=== PATIENT | female | born 1935 | race Caucasian/White ===

== ENCOUNTER → 2023-08-09 07:27 | Outpatient (REF) | payer MEDICARE, OTHER, SELFPAY | LOC: HWRAD 07:27 | PROVIDERS: ATTENDING PHYSICIAN Family Medicine | DX: K59.09 Other constipation (principal) | CPT/HCPCS: 74176 ==

== ENCOUNTER → 2023-09-01 09:08 | Outpatient (REF) | payer MEDICARE, OTHER, SELFPAY ==
[2023-09-01 12:19] LABS: % Basophils 0.7 % (0-2); % Eosinophils 2.4 % (0-6); % Immature Granulocytes 0.2 % (0-0.5); % Lymphocytes 31.8 % (20.5-51.1); % Monocytes 10.4 % (1.7-9.3); % Neutrophils 54.5 % (42.2-75.2); Absolute Eosinophils 0.1 10^3/uL (0-0.7); Absolute Lymphocytes 1.9 10^3/uL (1.2-3.4); Absolute Monocytes 0.6 10^3/uL (0.1-0.6); Absolute Neutrophils 3.2 10^3/uL (1.4-6.5); Hematocrit 35.6 % (37.0-47.0); Hemoglobin 12.7 g/dL (12.0-16.0); Mean Corp Hgb Conc. 35.7 g/dL (33.0-37.0); Mean Corpuscular Hgb 33.9 pg (27.0-31.0); Mean Corpuscular Volume 94.9 fL (81.0-99.0); Mean Platelet Volume 9.5 fL (7.4-10.4); Nucleated Red Blood Cells % 0 %; Platelet Count 293 10^3/uL (130-400); Red Blood Cell Count 3.75 10^6/uL (4.20-5.40); Red Cell Dist. Width 12.8 % (11.5-14.5); White Blood Cell Count 5.9 10^3/uL (4.8-10.8)
[2023-09-01 12:44] LABS: ALT (SGPT) 13 U/L (0-35); AST (SGOT) 34 U/L (14-36); Albumin 3.4 g/dl (3.5-5.0); Alkaline Phosphatase 52 U/L (38-126); Direct Bilirubin 0.4 mg/dl (0.0-0.4); Total Bilirubin 0.8 mg/dl (0.2-1.3); Total Protein 6.2 g/dl (6.3-8.2)
== END ==
LOC: HWLAB 09:08
PROVIDERS: ATTENDING PHYSICIAN Internal Medicine Hematology & Oncology; FAMILY PHYSICIAN Family Medicine
DX: C50.511 Malignant neoplasm of lower-outer quadrant of right female breast (principal); D70.9 Neutropenia, unspecified; R11.2 Nausea with vomiting, unspecified; R19.7 Diarrhea, unspecified
CPT/HCPCS: 36415; 80076; 85025

== ENCOUNTER → 2023-10-11 06:46 | Outpatient (REF) | payer MEDICARE, OTHER, SELFPAY ==
[2023-10-11 09:51] LABS: % Basophils 0.7 % (0-2); % Eosinophils 2.6 % (0-6); % Immature Granulocytes 0.2 % (0-0.5); % Lymphocytes 31.6 % (20.5-51.1); % Monocytes 10.4 % (1.7-9.3); % Neutrophils 54.5 % (42.2-75.2); Absolute Eosinophils 0.2 10^3/uL (0-0.7); Absolute Lymphocytes 1.9 10^3/uL (1.2-3.4); Absolute Monocytes 0.6 10^3/uL (0.1-0.6); Absolute Neutrophils 3.2 10^3/uL (1.4-6.5); Hematocrit 37.1 % (37.0-47.0); Hemoglobin 12.7 g/dL (12.0-16.0); Mean Corp Hgb Conc. 34.2 g/dL (33.0-37.0); Mean Corpuscular Hgb 33.2 pg (27.0-31.0); Mean Corpuscular Volume 96.9 fL (81.0-99.0); Mean Platelet Volume 9.3 fL (7.4-10.4); Nucleated Red Blood Cells % 0 %; Platelet Count 287 10^3/uL (130-400); Red Blood Cell Count 3.83 10^6/uL (4.20-5.40); Red Cell Dist. Width 12.7 % (11.5-14.5); White Blood Cell Count 5.9 10^3/uL (4.8-10.8)
[2023-10-11 10:16] LABS: ALT (SGPT) 14 U/L (0-35); AST (SGOT) 33 U/L (14-36); Albumin 3.8 g/dl (3.5-5.0); Alkaline Phosphatase 56 U/L (38-126); Blood Urea Nitrogen 15 mg/dl (7-17); Calcium 9.2 mg/dl (8.4-10.2); Carbon Dioxide 30 mmol/L (22-30); Chloride 104 mmol/L (98-107); Glucose 99 mg/dl (70-99); HDL Cholesterol 52 mg/dl; LDL Cholesterol, Calculated 32 mg/dl; Potassium 3.7 mmol/L (3.5-5.1); Sodium 138 mmol/L (135-145); Total Bilirubin 0.7 mg/dl (0.2-1.3); Total Cholesterol 112 mg/dl (50-199); Total Protein 6.3 g/dl (6.3-8.2); Triglyceride 142 mg/dl (10-149); Very Low Density Lipoprotein 28 mg/dl (0-30); eGFR 54.87
[2023-10-11 10:45] LABS: TSH Reflex To Free T4 5.65 uIU/ml (0.47-4.68)
[2023-10-11 11:30] LABS: Free T4 1.47 ng/dl (0.78-2.19)
[2023-10-11 11:58] LABS: Glycohemoglobin (HgbA1c) 5.7 % (4.0-5.6)
== END ==
LOC: HWLAB 06:46
PROVIDERS: ATTENDING PHYSICIAN Family Medicine
DX: E89.0 Postprocedural hypothyroidism (principal); E11.51 Type 2 diabetes mellitus with diabetic peripheral angiopathy without gangrene; N18.30 Chronic kidney disease, stage 3 unspecified; E78.00 Pure hypercholesterolemia, unspecified
CPT/HCPCS: 36415; 80053; 80061; 83036; 84439; 84443; 85025

== ENCOUNTER 2023-10-11 13:44 | Emergency (ER) | payer MEDICARE, OTHER, SELFPAY ==
[2023-10-11 13:44] VITALS: BMI 29.9
[2023-10-11 13:50] VITALS: BP 170/79
--- NOTE | 2023-10-11 14:00 | ED.CVA ---
History of Present Illness
General
Chief Complaint: CVA/TIA Symptoms
Source: patient and family
Exam Limitations: none
Time Seen by Provider: 10/11/23 13:55
Nursing documentation reviewed up to this point in time: agreed with
Onset of Stroke Symptoms
Onset of symptoms known: Yes
Date of onset of symptoms: 10/11/23
Time of onset of symptoms: 13:00
Travel History
Have you had any contact with someone who has COVID-19?: No
Do you have any symptoms of coronavirus? Fever > 100 degrees, chills, cough, shortness of breath, sore throat, loss of taste or smell, muscle aches, or headache?: No
History of Present Illness
History of Present Illness:
Patient presents to ED secondary to sudden onset of difficulty speaking, on approximately 1/2-hour prior to arrival. Patient has had posterior headache intermittently over the past 1 week. Denies dizziness. Denies blurred vision. Denies loss of
sensation or weakness. Denies difficulty swallowing. Denies nausea or vomiting. Denies recent illness. Denies recent change in medications or diet. Denies previous history of similar symptoms. Patient takes 81 mg aspirin daily.
Past History
Past History
ED Past Medical History: Cancer, Fibromyalgia, GERD, HTN, Hypercholesterolemia, Hypothyroidism, Psychiatric, Other and Other
ED Past Surgical History: Appendectomy, Cholecystectomy, Gynecological, Orthopedic and Other
Social History
Tobacco: Former smoker
Alcohol: None
Drug: None
Personal:
Living: with family
Employment: Retired
Family History
Family History: Cancer
Review of Systems
Review of Systems
Allergies reviewed?: Yes
All Other Systems: ROS reviewed and negative except as documented in HPI and ROS
Constitutional: Reports no symptoms
EENT: Reports no symptoms
Respiratory: Reports no symptoms
Cardiac: Reports no symptoms
ABD/GI: Reports no symptoms
: Reports no symptoms
Musculoskeletal: Reports no symptoms
Skin: Reports no symptoms
Neurological: Reports other (Difficulty w speech)
Phy Exam
Physical Exam
Physical Exam:
Physical Exam
General: no apparent distress, not acutely ill. afebrile.
Head: nc/at. eomi
Neck: supple. normal range of motion.
Heart: s1/s2 regular rate and rhythm, no murmur. equal radial pulses.
Lungs: no acute respiratory distress. clear bilaterally
Abdomen: normal bowel sounds. not tender.
Neuro: alert and oriented. no focal sensory/motor deficit. stuttering/delayed speech noted.
Skin: no rash
Psychiatric: well kept. interactive and cooperative
Extremities: no edema. no calf tenderness.
Course
Orders/Labs/Results
Orders:
Orders
10/11/23 13:58
CT Head W/o Cont STROKE ALERT Stat
Comment:
Reason For Exam: aphasia
10/11/23 14:05
Electrocardiogram (*1) Stat
Reason for Study: Other
Other Reason for Exam: neuro symptoms
Cardiac Monitoring- Treatment ONCE
EKG- Treatment ONCE
10/11/23 14:09
Lorazepam [Ativan] 0.5 mg IV NOW STA
Lorazepam [Ativan] 1 mg IV NOW STA
10/11/23 14:10
Basic Metabolic Panel Urgent
Complete Blood Count/No Diff Urgent
Ferritin Urgent
Comment: ADD ON
Folate Urgent
Comment: ADD ON
Vitamin B12 Urgent
Comment: ADD ON
Lorazepam [Ativan] 2 mg .ROUTE .STK-MED ONE
10/11/23 14:11
0.9% Sodium Chloride [Nss (Preservative Free)] 0.5 ml IV STAT STA
10/11/23 15:14
Acetaminophen [Tylenol] 650 mg PO NOW STA
10/11/23 15:29
Add On- LAB Routine
Tests Added?: folate, ferritin, B12
Abnormal Lab Results
10/11/23
14:10
RBC 3.59 L 10^6/uL
(4.20-5.40)
Hct 34.5 L %
(37.0-47.0)
MCH 34.0 H pg
(27.0-31.0)
Sodium 134 L mmol/L
(135-145)
Folate > 20.0 H ng/ml
(2.76-20)
10/11/23 14:10
10/11/23 14:10
Vital Signs
Initial and Last Documented VS:
Initial Vital Signs
Temp Pulse Resp BP Pulse Ox
98.1 F 70 18 170/79 97
10/11/23 13:50 10/11/23 13:50 10/11/23 13:50 10/11/23 13:50 10/11/23 13:50
Last Documented Vital Signs
Temp Pulse Resp BP Pulse Ox
98.1 F 61 12 145/68 95
10/11/23 13:50 10/11/23 15:30 10/11/23 15:30 10/11/23 15:15 10/11/23 15:15
MDM/Problems Addressed
MDM/Problems Addressed:
Stroke alert activated upon arrival. CT head: No acute findings.
Patient evaluated by Dr. Fenton, neurology, who feels that patient's presentation is likely secondary to anxiety, less likely CVA etiology. Does not feel that patient needs any further workup as an inpatient. As such, patient will be discharged
home, to the care of her family, with recommendation to follow-up with neurology as an outpatient, especially with ongoing intermittent upper extremity tremor. Advised to return to ED with worsening symptoms. Patient and family expressed
understanding at time of discharge.
*Critical Care Note
Total Time (30-74mins, 75-104mins- exclusive of procedures): Not Applicable
ED Attending Note
-
Portions of this chart may have been created with voice recognition software.� Occasional wrong word or��sound alike� substitutions may have occurred due to the inherent limitations of voice recognition software.
Discharge Plan
Departure
Patient Disposition: Home (Routine Discharge)
Date of Disposition: 10/11/23
Time of Disposition: 15:41
Patient with high blood pressure during this ER visit?: Yes
Discharge Problem:
Disturbance in speech
Instructions: Dysarthria
Prescriptions:
No Action
famotidine 40 MG tablet
40 mg PO HS
aspirin 81 MG tablet,delayed release (DR/EC)
81 mg PO DAILY
lorazepam 0.5 MG tablet
0.5 mg PO DAILYPRN PRN (Reason: anxiety)
escitalopram oxalate 10 MG tablet
5 mg PO DAILY
pantoprazole 40 MG tablet,delayed release (DR/EC)
40 mg PO DAILY
hydrochlorothiazide 12.5 MG capsule
12.5 mg PO DAILY
metoprolol succinate 25 MG tablet extended release 24 hr
25 mg PO BID
gabapentin 300 MG capsule
900 mg PO HS
gabapentin 300 MG capsule
300 mg PO DAILY
ezetimibe 10 MG tablet
10 mg PO HS
cholecalciferol (vitamin D3) [Vitamin D3] 2,000 UNIT capsule
2,000 unit PO DAILY
Botox 100 unit Recon Soln
0 unit IM MONTHLY
Theragen Tablet
1 tab PO DAILY
Ocuvite Tablet
1 tab PO DAILY
Praluent Pen 75 mg/mL Pen Injector
75 mg SC Q2W
Referrals:
Yvon Fenton MD [Active] -
Activity Restrictions/Additional Instructions:
As discussed, please follow-up with your primary care physician and/or referred neurologist for further evaluation and treatment. Please return to ED with worsening symptoms.
Interventions
Interventions:
*Risk Screen - Suicide Last Done: 10/11/23 16:06
*General Assessment Last Done: 10/11/23 16:06
*Neglect/Abuse Screening Last Done: 10/11/23 16:06
ED- Fall Risk Assessment Last Done: 10/11/23 14:35
*ED COVID-19 Vaccine History Last Done: 10/11/23 16:06
*Nursing Disposition Last Done: 10/11/23 16:06
ED- Pulmonary Assessment Last Done: 10/11/23 14:35
ED- Neurological Assessment Last Done: 10/11/23 14:35
ED- Cardiac Assessment Last Done: 10/11/23 14:35
ED Swallowing Screen Last Done: 10/11/23 15:20
Discharge Date and Time
Discharge Date/Time: 10/11/23 16:07
Print Language: YI
--- NOTE | 2023-10-11 14:06 | CON.NEURO4 ---
Addendum entered and electronically signed by Yvon Fenton MD 10/11/23 16:17:
Studies reviewed.
I have personally examined the patient. I reviewed and agree with the PARISH VISITOR's Note.
My addenda:
Awake, alert, interactive. No acute distress.
Speech intact.
Follows 2-step requests w/o difficulty. Bilateral hand tremor.
Extra-ocular movements grossly intact.
Facial movements full and symmetric. Hearing intact to normal conversational volume.
Normal UE movements bilaterally.
Neck: full ROM.
Chest: no dyspnea
Heart: no JVD
Ext: (-) Clubbing, (-) Cyanosis, (-) Edema
IMPRESSIONS/RECOMMENDATIONS:
Abrupt onset of aphasia with generalized tremor. Patient said similar episodes previously although this episode is longer in duration than usual
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
Provide lorazepam to reduce generalized anxiety
By means of cognitive behavioral therapy to reduce episodes
Continue patient's usual aspirin 81 mg daily
Continue alirocumab
Will continue to follow as outpatient.
Original Note:
Documented by User: Essence Reeves NP 10/11/23 15:28
Consultation - Neurology 4
-
CONSULTING PHYSICIAN: Yvon Fenton MD
REFERRING PHYSICIAN: ER/Dr. Hardy
DICTATED BY: TUTU Henry
DATE/TIME OF REQUEST: 10/11/23
DATE/TIME OF CONSULTATION: 10/11/23
Reason for Consultation: Stroke Alert
History of Present Illness:
This is an 88-year-old female who has presented to the hospital with report of difficulty speaking, confusion, and headache. Patient was formerly followed by our Neurology service Dr. Mao as an outpatient for tremors, cervical dystonia, drooling,
dyskinesia, peripheral polyneuropathy, LLE numbness, and chronic right caudate nucleus, left frontal lobe, and left cerebellar lacunar infarcts.
From previous evaluation by Dr. Mao on 01/08/22:
'Ms. Escobar returns to the office today for a follow-up visit for pain in the back of her neck and lower back. She reports continued and daily pain in her lower back and the back of the neck. However, some days the pain is mild and does not bother
her too much, and other days, it is more intense. She has approximately 2 days a week of more intense pain. She reports compliance with meloxicam, Gabapentin and lidocaine patch. She uses lidocaine patch only on her lower back at this time.
Sometimes, she also takes an additional Tylenol when her pain is more intense. She reports having had a fall in August 2018. She denies any new neurologic complaints today.�������
Patient daughter also noticed patient started to have repetitive oral Facial movement Several years ago. Patient is not able to suppress the movement. She does not feel urge or released before or after the movement. Patient denies history of
exposure to neuroleptics.�������
Patient also had a carotid ultrasound June 2020 and it showed no significant stenosis of internal carotid artery bilaterally.�������
She is taking gabapentin 300mg AM/900 mg PM for neuropathic pain.�������
INTERVAL HX:�������Since last visit, she reported Botox injection is very helpful and improved neck spasm and neck tremor. Kick in about one week and wearing off about two weeks ago. No SE. Drooling significantly improved after botox A injection
however wearing off started about 2-3 weeks ago. No SE from Botox injection.'
In 2017, she presented to with report of right facial drooping and tongue numbness. 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 MRI brain in 2017
demonstrated a small left frontal lobe ischemic infarct. Additionally, in 2018 due to frequent headache she underwent temporal artery biopsy which was negative.
Today (10/11/23), patient's daughter reports that the patient was at her baseline. She went to lunch with another family member and up retuning around 1330, her speech suddenly became stuttered, dysarthric. A stroke alert was activated due to
concern of aphasia. CT head was obtained on arrival in the ER and is negative for any acute abnormalities. NIHSS is a 2 for LLE drift and mild dysarthria. She is not a candidate for TNK/IAT due to NIHSS <6, unclear diagnosis. Patient currently
reports a headache which she has had intermittently for the past week. She has chronic vertigo. She denies any vision changes, swallowing difficulty, new numbness, weakness, chest pain, palpitations, photo/phonophobia, and shortness of breath. She
reports chronic LLE numbness/discomfort with palpation. He daughter reports that she has had similar speech changes in the past associated with severe anxiety. She is taking aspirin 81mg daily and denies missing any doses.
Past Medical History: R caudate nucleus, left frontal lobe, and left cerebellar lacunar infarcts, HTN, HLD, neuropathy, CKD, depression, anxiety, Dixon's esophagus, GERD, breast cancer, hypothyroidism, carotid stenosis, thoracic HNP
Surgical History: L CEA, breast biopsy, b/l breast lumpectomy, b/l cataract removal, hysterectomy, appendectomy, trigger finger release, soft tissue roof of mouth removal, B/L TKR, BL L3-Si IAFJI
Family History: Sister- cerebral aneurysm
Social History: Former smoker.
Allergies: See below. Statin intolerant.
Home Medications: See below.
Review of Symptoms:
Patient denies any fever, chest pain, shortness of breath, GI or symptoms.
�Per the HPI.�All systems are reviewed negative except above.
Physical Exam:
The patient is afebrile, abdomen is nondistended, breathing is unlabored, skin is warm and dry, no edema.
NIH Stroke Scale:
I performed the NIH stroke scale on the patient on 10/11/23 at 1415. The patient scored 2 points on the NIH stroke scale assessment, which were assigned as follows: See below.
Neurologic Examination:
The patient is awake, alert and oriented x 3. She is able to follow commands and answer questions appropriately. There is no aphasia or dysarthria. On cranial nerve assessment, pupils are 3 mm bilateral, round and reactive to light and
accommodation. Visual dimas are full. Extraocular movements are intact. Facial sensations are intact and bilaterally symmetrical, there is no facial asymmetry. Hearing is intact bilaterally to normal conversation volume. Tongue palate and uvula are
midline. Sternocleidomastoid strengths are full bilaterally. Motor strengths are 5/5 bilateral upper and lower extremities on medical research [place] scale. There is drift in the LLE. Intermittent generalized tremor noted. There was no extinction
noted on double simultaneous stimulation. Coordination is intact by finger to nose bilaterally.
Lab Results: See below.
Neuro Imaging:
1. CT Head 10/11/23: Moderate atrophy and small vessel ischemic change, grossly stable compared to prior MRI brain dated 11/05/2021.
Differentials for the patient's presentation include:
1. Likely a metabolic disturbance or functional neurological disorder producing speech changes.
2. Cannot entirely exclude small stroke producing speech changes but less likely.
Patient has the following risk factors for their symptoms: Hx stroke, HTN, HLD, anxiety, age
IV Tenecteplase/IAT candidacy: NIHSS is a 2 for LLE drift and mild dysarthria.
Recommendations:
-Provide lorazepam 0.5mg IV x1 now.
-Checking blood work for metabolic abnormalities.
-If no improvement in speech consider MRI brain as an outpatient.
-Continue aspirin 81mg daily.
Discussed patient care with: Dr. Fenton, the patient, patient's daughter
Vital Signs and Labs
-
Vital Signs and Labs:
Vital Signs
Temp Pulse Resp BP Pulse Ox
98.1 F 70 18 170/79 97
10/11/23 13:50 10/11/23 13:50 10/11/23 13:50 10/11/23 13:50 10/11/23 13:50
Medications
-
Home Medications
�Medication �Instructions �Recorded
aspirin 81 mg tablet,delayed 81 mg PO DAILY 05/10/14
release
escitalopram oxalate 10 mg tablet 5 mg PO DAILY 05/10/14
famotidine 40 mg tablet 40 mg PO HS 05/10/14
lorazepam 0.5 mg tablet 0.5 - 1 mg PO DAILYPRN PRN anxiety 05/10/14
epinephrine 0.3 mg/0.3 mL 0.3 mg IM PRN PRN bee stings 02/17/17
injection, auto-injector (EpiPen)
loratadine 10 mg tablet 10 mg PO DAILY 02/17/17
pantoprazole 40 mg tablet,delayed 40 mg PO DAILY 02/17/17
release
hydrochlorothiazide 12.5 mg capsule 12.5 mg PO DAILY 02/28/18
metoprolol succinate 25 mg 25 mg PO HS 02/28/18
tablet,extended release 24 hr
cholecalciferol (vitamin D3) 50 2,000 unit PO DAILY 01/15/19
mcg (2,000 unit) capsule (Vitamin
D3)
ezetimibe 10 mg tablet 10 mg PO HS 01/15/19
gabapentin 300 mg capsule 300 mg PO .QAM 01/15/19
gabapentin 300 mg capsule 900 mg PO HS 01/15/19
levothyroxine 125 mcg tablet 125 mcg PO DAILY 01/15/19
NIH Stroke Score
Subsequent NIH Scale
Date of Subsequent NIH Scale: 10/11/23
Time of Subsequent NIH Scale: 14:15
NIH Stroke Score
Level of Consciousness: 0 - Alert
LOC Questions: 0-Answers both correctly
LOC Commands: 0-Performs both correctly
Best Horizontal Gaze: 0-Normal
Visual Dimas: 0=Normal, no visual loss
Facial Palsy: 0=Normal, symmetrical
Motor - Right Arm: 0=No drift 10 seconds
Motor - Left Arm: 0=No drift 10 seconds
Motor - Right Le-No drift 5 seconds
Motor - Left Le-Drift < 5 seconds
Limb Ataxia: 0-Absent
Sensation: 0-Normal
Best Language: 0-No aphasia
Dysarthria: 1-Mild slurring
Extinction and Inattention: 0-No abnormality
Total Score:: 2
Allergies
-
Allergies
Allergy/AdvReac Type Severity Reaction Status Date / Time
cephalexin Allergy Rash Verified 01/04/21 20:06
chloroquine Allergy Unknown Verified 01/04/21 20:06
ondansetron Allergy Patient Verified 01/04/21 20:06
[From Zofran (as has
hydrochloride)] prolonged
QT syndrome
quinine Allergy Neck and Verified 01/04/21 20:06
throat
swelling
simvastatin Allergy muscle Verified 01/04/21 20:06
pain,
weakness
Xgkrsbs-VCS-QaZ Reductase Allergy muscle Verified 01/04/21 20:06
Inhibitor pain,
[Utdwbda-Tos-Hkd Reductase weakness
Inhibitor]
Sulfa (Sulfonamide Allergy Neck and Verified 01/04/21 20:06
Antibiotics) throat
swelling,
rash
sulfisoxazole Allergy Unknown Verified 01/04/21 20:06
Bee stings Allergy Loss of Uncoded 01/04/21 20:06
muscle
control

Documented by User: Yvon Fenton MD 10/11/23 16:13
NIH Stroke Score
NIH Stroke Score
Total Score:: 2
[2023-10-11 14:12] LABS: Glucose - Point of Care 93 mg/dl (70-99)
[2023-10-11] MEDS: ATIVAN 0.5 MG IV (14:22)
[2023-10-11 14:29] LABS: Hematocrit 34.5 % (37.0-47.0); Hemoglobin 12.2 g/dL (12.0-16.0); Mean Corp Hgb Conc. 35.4 g/dL (33.0-37.0); Mean Corpuscular Volume 96.1 fL (81.0-99.0); Mean Platelet Volume 9.1 fL (7.4-10.4); Platelet Count 267 10^3/uL (130-400); Red Blood Cell Count 3.59 10^6/uL (4.20-5.40); Red Cell Dist. Width 12.5 % (11.5-14.5); White Blood Cell Count 7.8 10^3/uL (4.8-10.8)
[2023-10-11 14:43] LABS: Blood Urea Nitrogen 15 mg/dl (7-17); Calcium 9.6 mg/dl (8.4-10.2); Carbon Dioxide 27 mmol/L (22-30); Chloride 98 mmol/L (98-107); Estimated Creatinine Clearance 46 ml/min; Glucose 95 mg/dl (70-99); Potassium 3.8 mmol/L (3.5-5.1); Sodium 134 mmol/L (135-145); eGFR > 60.00
[2023-10-11 14:45] VITALS: BP 154/60
[2023-10-11 15:00] VITALS: BP 158/59
[2023-10-11 15:15] VITALS: BP 145/68
[2023-10-11] MEDS: TYLENOL 650 MG PO (15:26)
[2023-10-11 17:54] LABS: Ferritin 58.3 ng/ml (11.1-264.0)
[2023-10-11 18:25] LABS: Folate > 20.0 ng/ml (2.76-20); Vitamin B12 583 pg/ml (239-931)
== END 2023-10-11 16:07 | disposition home or self-care (01) ==
LOC: EMR 13:44
PROVIDERS: EMERGENCY PHYSICIAN Emergency Medicine; FAMILY PHYSICIAN Family Medicine; OTHER PHYSICIAN Psychiatry & Neurology Neurology
DX: R47.9 Unspecified speech disturbances (principal); R51.9 Headache, unspecified; R25.1 Tremor, unspecified; R47.01 Aphasia; I10 Essential (primary) hypertension; Z87.891 Personal history of nicotine dependence; Z79.82 Long term (current) use of aspirin
CPT/HCPCS: 99285; 96374; 70450; 80048; 82607; 82728; 82746; 82962; 85027; 93005

== ENCOUNTER → 2023-10-18 12:05 | Outpatient (REF) | payer MEDICARE, OTHER, SELFPAY | LOC: HWRAD 12:05 | PROVIDERS: ATTENDING PHYSICIAN Family Medicine | DX: M79.671 Pain in right foot (principal) | CPT/HCPCS: 73630 ==

== ENCOUNTER → 2023-12-12 07:33 | Outpatient (REF) | payer MEDICARE, OTHER, SELFPAY | LOC: MRI 07:33 | PROVIDERS: ATTENDING PHYSICIAN Nurse Practitioner Adult Health; FAMILY PHYSICIAN Family Medicine | DX: R47.89 Other speech disturbances (principal); Z86.73 Personal history of transient ischemic attack (TIA), and cerebral infarction without residual deficits | CPT/HCPCS: 70551 ==

== ENCOUNTER 2023-12-27 18:46 | Emergency (ER) | payer MEDICARE, OTHER, SELFPAY ==
[2023-12-27 18:48] VITALS: BP 166/76
[2023-12-27 19:14] LABS: % Basophils 0.7 % (0-2); % Eosinophils 1.9 % (0-6); % Immature Granulocytes 0.1 % (0-0.5); % Lymphocytes 35.2 % (20.5-51.1); % Monocytes 8.8 % (1.7-9.3); % Neutrophils 53.3 % (42.2-75.2); Absolute Basophils 0.1 10^3/uL (0-0.2); Absolute Eosinophils 0.1 10^3/uL (0-0.7); Absolute Lymphocytes 2.6 10^3/uL (1.2-3.4); Absolute Monocytes 0.7 10^3/uL (0.1-0.6); Absolute Neutrophils 3.9 10^3/uL (1.4-6.5); Hematocrit 32.9 % (37.0-47.0); Hemoglobin 11.9 g/dL (12.0-16.0); Mean Corp Hgb Conc. 36.2 g/dL (33.0-37.0); Mean Corpuscular Hgb 34.1 pg (27.0-31.0); Mean Corpuscular Volume 94.3 fL (81.0-99.0); Mean Platelet Volume 9.1 fL (7.4-10.4); Nucleated Red Blood Cells % 0 %; Platelet Count 291 10^3/uL (130-400); Red Blood Cell Count 3.49 10^6/uL (4.20-5.40); Red Cell Dist. Width 12.7 % (11.5-14.5); White Blood Cell Count 7.4 10^3/uL (4.8-10.8)
[2023-12-27 19:33] LABS: ALT (SGPT) 14 U/L (0-35); AST (SGOT) 36 U/L (14-36); Albumin 3.8 g/dl (3.5-5.0); Alkaline Phosphatase 59 U/L (38-126); Blood Urea Nitrogen 15 mg/dl (7-17); Calcium 9.4 mg/dl (8.4-10.2); Carbon Dioxide 28 mmol/L (22-30); Chloride 104 mmol/L (98-107); Glucose 90 mg/dl (70-99); Sodium 138 mmol/L (135-145); Total Bilirubin 0.4 mg/dl (0.2-1.3); eGFR > 60.00
[2023-12-27 19:40] LABS: Troponin I < 0.012 ng/ml
[2023-12-27 21:08] VITALS: BP 155/59
--- NOTE | 2023-12-27 21:41 | ED.GENMED ---
History of Present Illness
General
Chief Complaint: Cardiac Symptoms
Source: patient and family
Exam Limitations: none
Time Seen by Provider: 12/27/23 20:56
Nursing documentation reviewed up to this point in time: agreed with
History of Present Illness
History of Present Illness:
88-year-old female type II diabetic, hypercholesterolemia, anxiety, presents with sharp anterior chest wall pain since waking up from a nap lasting secondary to sharp, no prior episodes does admit to some nervousness she has a dermatology
appointment to have the lesion evaluated on her nose, history of breast cancer, 6 years ago, had no fever or chills, no diaphoresis no heavy lifting
Past History
Past History
ED Past Medical History: Cancer, Fibromyalgia, GERD, HTN, Hypercholesterolemia, Hypothyroidism, Psychiatric, Other and Other
ED Past Surgical History: Appendectomy, Cholecystectomy, Gynecological, Orthopedic and Other
Social History
Tobacco: Former smoker
Alcohol: None
Drug: None
Personal:
Living: with family
Employment: Retired
Family History
Family History: Cancer
Review of Systems
Review of Systems
All Other Systems: Not applicable
Constitutional: Denies fever or fatigue
Respiratory: Denies trouble breathing
Cardiac: Reports chest pain; Denies palpitations
ABD/GI: Reports no symptoms
: Reports no symptoms
Musculoskeletal: Reports no symptoms
Neurological: Reports no symptoms
Endocrine: Reports no symptoms
Phy Exam
Physical Exam
Physical Exam:
Physical Exam
General: no apparent distress, not acutely ill
Neck: Small lesion on the left anterior nose
Heart: Regular sharp point tender over the right sternal
Lungs: no acute respiratory distress. clear bilaterally
Abdomen: Nontender
Neuro: alert and oriented. no focal neurological deficits
Skin: no rash
Psychiatric: well kept. interactive and cooperative
Extremities: no edema. no calf tenderness.
Course
Orders/Labs/Results
Orders:
Orders
12/27/23 18:51
Electrocardiogram (*1) Urgent
Reason for Study: Chest Pain
EKG- Treatment ONCE
12/27/23 19:05
CMP [Comprehensive Metabolic Panel] Urgent
Complete Blood Count/With Diff Urgent
Troponin I Urgent
12/27/23 21:38
Acetaminophen [Tylenol] 650 mg PO NOW STA
Ibuprofen [Motrin] 400 mg PO NOW STA
CR Chest - 2 Views Urgent
Comment:
Reason For Exam: cp
Abnormal Lab Results
12/27/23
19:05
RBC 3.49 L 10^6/uL
(4.20-5.40)
Hgb 11.9 L g/dL
(12.0-16.0)
Hct 32.9 L %
(37.0-47.0)
MCH 34.1 H pg
(27.0-31.0)
Absolute Monos (auto) 0.7 H 10^3/uL
(0.1-0.6)
Total Protein 6.0 L g/dl
(6.3-8.2)
12/27/23 19:05
12/27/23 19:05
Vital Signs
Initial and Last Documented VS:
Initial Vital Signs
Temp Pulse Resp BP Pulse Ox
98 F 66 22 166/76 76
12/27/23 18:48 12/27/23 18:48 12/27/23 18:48 12/27/23 18:48 12/27/23 18:48
Last Documented Vital Signs
Temp Pulse Resp BP Pulse Ox
98 F 66 22 166/76 76
12/27/23 18:48 12/27/23 18:48 12/27/23 18:48 12/27/23 18:48 12/27/23 18:48
MDM/Problems Addressed
Differential Diagnosis Includes:
Costochondritis, muscle strain, doubt pneumothorax PE or ACS by history physical
MDM/Problems Addressed:
Chest wall pain
Chronic conditions affecting care: DM
Acute Exacerbation and/or Progression of Chronic Illness: DM
*Radiology
Radiology exam reviewed: preliminary read by ED provider
*Pulse Oximetry
Patient hypoxic: no
*EKG
Interpreted by ED Provider?: Yes
Interpretation: normal
Comparison EKG: no comparison EKG present
Heart Rate: 78
Rate: normal
Ischemia: no ischemia
*Manager Desktop Interpretation
Rate: normal
Interpretation: normal
Heart Rate: 78
Rhythm: sinus
*Critical Care Note
Total Time (30-74mins, 75-104mins- exclusive of procedures): Not Applicable
Update Note
Update Note:
Update, symptoms were atypical for ACS sharp for a few seconds clearly reproducible EKG and troponin have been ordered by nursing and are noted with chest x-ray, treat symptomatically I did offer her anxiolytic as she does appear to have some
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
takes a lorazepam at home and would not want to potentiate any drug to drug interaction
PM chest x-ray noted
ED Attending Note
-
Portions of this chart may have been created with voice recognition software.� Occasional wrong word or��sound alike� substitutions may have occurred due to the inherent limitations of voice recognition software.
Discharge Plan
Departure
Patient Disposition: Home (Routine Discharge)
Date of Disposition: 12/27/23
Time of Disposition: 23:11
Patient with high blood pressure during this ER visit?: No
Condition: Good
Discharge Problem:
Acute costochondritis
Instructions: Costochondritis
Prescriptions:
No Action
famotidine 40 MG tablet
40 mg PO HS
aspirin 81 MG tablet,delayed release (DR/EC)
81 mg PO DAILY
lorazepam 0.5 MG tablet
0.5 mg PO DAILYPRN PRN (Reason: anxiety)
escitalopram oxalate 10 MG tablet
5 mg PO DAILY
pantoprazole 40 MG tablet,delayed release (DR/EC)
40 mg PO DAILY
hydrochlorothiazide 12.5 MG capsule
12.5 mg PO DAILY
metoprolol succinate 25 MG tablet extended release 24 hr
25 mg PO BID
gabapentin 300 MG capsule
900 mg PO HS
gabapentin 300 MG capsule
300 mg PO DAILY
ezetimibe 10 MG tablet
10 mg PO HS
cholecalciferol (vitamin D3) [Vitamin D3] 2,000 UNIT capsule
2,000 unit PO DAILY
Botox 100 unit Recon Soln
0 unit IM MONTHLY
Theragen Tablet
1 tab PO DAILY
Ocuvite Tablet
1 tab PO DAILY
Praluent Pen 75 mg/mL Pen Injector
75 mg SC Q2W
Referrals:
UNKNOWN - PT DOES,NOT KNOW [Unknown Provider] -
Activity Restrictions/Additional Instructions:
Tylenol or ibuprofen for pain, follow-up with your microelectronics engineer tomorrow as scheduled
Interventions
Interventions:
*Risk Screen - Suicide Last Done: 12/27/23 18:48
*Neglect/Abuse Screening Last Done: 12/27/23 18:48
Discharge Date and Time
Print Language: SLOVEN[place]
[2023-12-27 22:00] VITALS: BP 175/65
[2023-12-27 23:00] VITALS: BP 176/62
[2023-12-27] MEDS: MOTRIN 400 MG PO (23:34)
[2023-12-27] MEDS: TYLENOL 650 MG PO (23:35)
== END 2023-12-27 23:58 | disposition home or self-care (01) ==
LOC: EMR 18:46
PROVIDERS: Student in an Organized Health Care Education/Training Program; EMERGENCY PHYSICIAN Emergency Medicine; FAMILY PHYSICIAN Family Medicine
DX: M94.0 Chondrocostal junction syndrome [Tietze] (principal); Z87.891 Personal history of nicotine dependence; E78.00 Pure hypercholesterolemia, unspecified; E11.9 Type 2 diabetes mellitus without complications; F41.9 Anxiety disorder, unspecified
CPT/HCPCS: 99285; 71046; 80053; 84484; 85025; 93005

== ENCOUNTER → 2024-02-14 09:27 | Outpatient (REF) | payer MEDICARE, OTHER, SELFPAY ==
[2024-02-14 10:34] LABS: % Basophils 0.9 % (0-2); % Eosinophils 2.4 % (0-6); % Immature Granulocytes 0.2 % (0-0.5); % Lymphocytes 19.8 % (20.5-51.1); % Neutrophils 63.7 % (42.2-75.2); Absolute Basophils 0.1 10^3/uL (0-0.2); Absolute Eosinophils 0.1 10^3/uL (0-0.7); Absolute Lymphocytes 1.1 10^3/uL (1.2-3.4); Absolute Monocytes 0.7 10^3/uL (0.1-0.6); Absolute Neutrophils 3.4 10^3/uL (1.4-6.5); Hematocrit 34.1 % (37.0-47.0); Hemoglobin 11.6 g/dL (12.0-16.0); Mean Corpuscular Hgb 33.3 pg (27.0-31.0); Mean Platelet Volume 9.1 fL (7.4-10.4); Nucleated Red Blood Cells % 0 %; Platelet Count 248 10^3/uL (130-400); Red Blood Cell Count 3.48 10^6/uL (4.20-5.40); Red Cell Dist. Width 12.9 % (11.5-14.5); White Blood Cell Count 5.3 10^3/uL (4.8-10.8)
[2024-02-14 10:55] LABS: ALT (SGPT) 14 U/L (0-35); AST (SGOT) 34 U/L (14-36); Albumin 3.5 g/dl (3.5-5.0); Alkaline Phosphatase 54 U/L (38-126); Blood Urea Nitrogen 16 mg/dl (7-17); Calcium 9.2 mg/dl (8.4-10.2); Carbon Dioxide 28 mmol/L (22-30); Chloride 107 mmol/L (98-107); Glucose 93 mg/dl (70-99); HDL Cholesterol 48 mg/dl; LDL Cholesterol, Calculated 32 mg/dl; Potassium 4.6 mmol/L (3.5-5.1); Sodium 139 mmol/L (135-145); Total Cholesterol 94 mg/dl (50-199); Total Protein 5.9 g/dl (6.3-8.2); Triglyceride 71 mg/dl (10-149); Very Low Density Lipoprotein 14 mg/dl (0-30); eGFR > 60.00
[2024-02-14 10:57] LABS: Glycohemoglobin (HgbA1c) 5.6 % (4.0-5.6)
[2024-02-14 11:26] LABS: TSH Reflex To Free T4 0.13 uIU/ml (0.47-4.68)
[2024-02-14 11:54] LABS: Free T4 2.13 ng/dl (0.78-2.19)
[2024-02-14 12:13] LABS: Total Bilirubin 0.5 mg/dl (0.2-1.3)
== END ==
LOC: REG 09:27
PROVIDERS: ATTENDING PHYSICIAN Family Medicine
DX: N18.30 Chronic kidney disease, stage 3 unspecified (principal); R53.83 Other fatigue; E89.0 Postprocedural hypothyroidism; E11.51 Type 2 diabetes mellitus with diabetic peripheral angiopathy without gangrene; E78.00 Pure hypercholesterolemia, unspecified
CPT/HCPCS: 36415; 80053; 80061; 83036; 84439; 84443; 85025

== ENCOUNTER → 2024-03-09 07:40 | Outpatient (REF) | payer MEDICARE, OTHER, SELFPAY | LOC: WDC 07:40 | PROVIDERS: ATTENDING PHYSICIAN Nurse Practitioner Primary Care; FAMILY PHYSICIAN Family Medicine | DX: Z12.31 Encounter for screening mammogram for malignant neoplasm of breast (principal); Z85.3 Personal history of malignant neoplasm of breast; C50.511 Malignant neoplasm of lower-outer quadrant of right female breast | CPT/HCPCS: 77063; 77067 ==

== ENCOUNTER → 2024-03-23 09:02 | Outpatient (REF) | payer MEDICARE, OTHER, SELFPAY ==
[2024-03-23 09:55] LABS: % Basophils 0.8 % (0-2); % Eosinophils 2.1 % (0-6); % Immature Granulocytes 0.3 % (0-0.5); % Neutrophils 66.8 % (42.2-75.2); Absolute Basophils 0.1 10^3/uL (0-0.2); Absolute Eosinophils 0.1 10^3/uL (0-0.7); Absolute Lymphocytes 1.3 10^3/uL (1.2-3.4); Absolute Monocytes 0.6 10^3/uL (0.1-0.6); Absolute Neutrophils 4.1 10^3/uL (1.4-6.5); Hematocrit 35.2 % (37.0-47.0); Hemoglobin 12.1 g/dL (12.0-16.0); Mean Corp Hgb Conc. 34.4 g/dL (33.0-37.0); Mean Corpuscular Hgb 33.9 pg (27.0-31.0); Mean Corpuscular Volume 98.6 fL (81.0-99.0); Mean Platelet Volume 9.6 fL (7.4-10.4); Nucleated Red Blood Cells % 0 %; Platelet Count 254 10^3/uL (130-400); Red Blood Cell Count 3.57 10^6/uL (4.20-5.40); Red Cell Dist. Width 12.9 % (11.5-14.5); White Blood Cell Count 6.1 10^3/uL (4.8-10.8)
[2024-03-23 10:51] LABS: ALT (SGPT) 21 U/L (0-35); AST (SGOT) 39 U/L (14-36); Albumin 3.8 g/dl (3.5-5.0); Alkaline Phosphatase 59 U/L (38-126); Direct Bilirubin 0.3 mg/dl (0.0-0.4); Total Bilirubin 0.5 mg/dl (0.2-1.3); Total Protein 6.1 g/dl (6.3-8.2)
== END ==
LOC: REG 09:02
PROVIDERS: ATTENDING PHYSICIAN Nurse Practitioner Primary Care; FAMILY PHYSICIAN Family Medicine
DX: C50.511 Malignant neoplasm of lower-outer quadrant of right female breast (principal); D70.9 Neutropenia, unspecified; R11.2 Nausea with vomiting, unspecified; R19.7 Diarrhea, unspecified
CPT/HCPCS: 36415; 80076; 85025

== ENCOUNTER → 2024-06-19 06:32 | Outpatient (REF) | payer MEDICARE, OTHER, SELFPAY ==
[2024-06-19 09:39] LABS: % Basophils 0.8 % (0-2); % Eosinophils 4.2 % (0-6); % Immature Granulocytes 0.2 % (0-0.5); % Monocytes 10.9 % (1.7-9.3); % Neutrophils 53.9 % (42.2-75.2); Absolute Eosinophils 0.2 10^3/uL (0-0.7); Absolute Lymphocytes 1.4 10^3/uL (1.2-3.4); Absolute Monocytes 0.5 10^3/uL (0.1-0.6); Absolute Neutrophils 2.6 10^3/uL (1.4-6.5); Hematocrit 38.6 % (37.0-47.0); Mean Corp Hgb Conc. 33.7 g/dL (33.0-37.0); Mean Corpuscular Hgb 33.7 pg (27.0-31.0); Mean Platelet Volume 9.6 fL (7.4-10.4); Nucleated Red Blood Cells % 0 %; Platelet Count 260 10^3/uL (130-400); Red Blood Cell Count 3.86 10^6/uL (4.20-5.40); Red Cell Dist. Width 12.6 % (11.5-14.5); White Blood Cell Count 4.8 10^3/uL (4.8-10.8)
[2024-06-19 09:54] LABS: ALT (SGPT) 17 U/L (0-35); AST (SGOT) 38 U/L (14-36); Albumin 3.9 g/dl (3.5-5.0); Alkaline Phosphatase 50 U/L (38-126); Blood Urea Nitrogen 14 mg/dl (7-17); Calcium 9.4 mg/dl (8.4-10.2); Carbon Dioxide 32 mmol/L (22-30); Chloride 100 mmol/L (98-107); Glucose 95 mg/dl (70-99); HDL Cholesterol 61 mg/dl; LDL Cholesterol, Calculated 49 mg/dl; Potassium 4.1 mmol/L (3.5-5.1); Sodium 139 mmol/L (135-145); Total Bilirubin 0.6 mg/dl (0.2-1.3); Total Cholesterol 124 mg/dl (50-199); Total Protein 6.4 g/dl (6.3-8.2); Triglyceride 70 mg/dl (10-149); Very Low Density Lipoprotein 14 mg/dl (0-30); eGFR 54.87
[2024-06-19 10:43] LABS: TSH Reflex To Free T4 3.98 uIU/ml (0.47-4.68)
[2024-06-19 10:47] LABS: Ferritin 61.5 ng/ml (11.1-264.0)
[2024-06-19 11:08] LABS: Glycohemoglobin (HgbA1c) 5.5 % (4.0-5.6)
== END ==
LOC: HWLAB 06:32
PROVIDERS: ATTENDING PHYSICIAN Family Medicine
DX: E89.0 Postprocedural hypothyroidism (principal); E11.51 Type 2 diabetes mellitus with diabetic peripheral angiopathy without gangrene; N18.30 Chronic kidney disease, stage 3 unspecified; E78.00 Pure hypercholesterolemia, unspecified; D64.9 Anemia, unspecified
CPT/HCPCS: 36415; 80053; 80061; 82728; 83036; 84443; 85025

== ENCOUNTER → 2024-08-17 13:50 | Outpatient (REF) | payer MEDICARE, OTHER, SELFPAY | LOC: HWRCS 13:50 | PROVIDERS: ATTENDING PHYSICIAN Internal Medicine Cardiovascular Disease; FAMILY PHYSICIAN Family Medicine | DX: I34.0 Nonrheumatic mitral (valve) insufficiency (principal) | CPT/HCPCS: 93306 ==

== ENCOUNTER → 2024-08-23 10:20 | Outpatient (REF) | payer MEDICARE, OTHER, SELFPAY | LOC: HWRAD 10:20 | PROVIDERS: ATTENDING PHYSICIAN Internal Medicine Cardiovascular Disease; FAMILY PHYSICIAN Family Medicine | DX: I77.71 Dissection of carotid artery (principal) | CPT/HCPCS: 93880 ==

== ENCOUNTER → 2024-09-21 09:33 | Outpatient (REF) | payer MEDICARE, OTHER, SELFPAY | LOC: HWRAD 09:33 | PROVIDERS: ATTENDING PHYSICIAN Family Medicine | DX: Z13.820 Encounter for screening for osteoporosis (principal); Z78.0 Asymptomatic menopausal state | CPT/HCPCS: 77080 ==

== ENCOUNTER → 2024-09-28 08:18 | Outpatient (REF) | payer MEDICARE, OTHER, SELFPAY ==
[2024-09-28 09:55] LABS: % Basophils 0.7 % (0-2); % Eosinophils 1.3 % (0-6); % Immature Granulocytes 0.3 % (0-0.5); % Lymphocytes 28.4 % (20.5-51.1); % Monocytes 10.1 % (1.7-9.3); % Neutrophils 59.2 % (42.2-75.2); Absolute Eosinophils 0.1 10^3/uL (0-0.7); Absolute Lymphocytes 1.7 10^3/uL (1.2-3.4); Absolute Monocytes 0.6 10^3/uL (0.1-0.6); Absolute Neutrophils 3.6 10^3/uL (1.4-6.5); Hemoglobin 12.7 g/dL (12.0-16.0); Mean Corp Hgb Conc. 34.3 g/dL (33.0-37.0); Mean Corpuscular Hgb 33.7 pg (27.0-31.0); Mean Corpuscular Volume 98.1 fL (81.0-99.0); Mean Platelet Volume 9.3 fL (7.4-10.4); Nucleated Red Blood Cells % 0 %; Platelet Count 275 10^3/uL (130-400); Red Blood Cell Count 3.77 10^6/uL (4.20-5.40); Red Cell Dist. Width 12.5 % (11.5-14.5)
[2024-09-28 10:13] LABS: ALT (SGPT) 16 U/L (0-35); AST (SGOT) 39 U/L (14-36); Albumin 3.9 g/dl (3.5-5.0); Alkaline Phosphatase 57 U/L (38-126); Direct Bilirubin 0.2 mg/dl (0.0-0.4); Total Bilirubin 0.7 mg/dl (0.2-1.3); Total Protein 6.2 g/dl (6.3-8.2)
== END ==
LOC: HWLAB 08:18
PROVIDERS: ATTENDING PHYSICIAN Internal Medicine Hematology & Oncology; FAMILY PHYSICIAN Family Medicine
DX: C50.511 Malignant neoplasm of lower-outer quadrant of right female breast (principal); D70.9 Neutropenia, unspecified; R11.2 Nausea with vomiting, unspecified; R19.7 Diarrhea, unspecified
CPT/HCPCS: 36415; 80076; 85025

== ENCOUNTER → 2024-10-21 10:05 | Outpatient (REF) | payer MEDICARE, OTHER, SELFPAY ==
[2024-10-21 11:07] LABS: % Basophils 0.6 % (0-2); % Eosinophils 2.1 % (0-6); % Immature Granulocytes 0.3 % (0-0.5); % Lymphocytes 23.4 % (20.5-51.1); % Neutrophils 64.6 % (42.2-75.2); Absolute Eosinophils 0.1 10^3/uL (0-0.7); Absolute Lymphocytes 1.5 10^3/uL (1.2-3.4); Absolute Monocytes 0.6 10^3/uL (0.1-0.6); Absolute Neutrophils 4.2 10^3/uL (1.4-6.5); Hematocrit 37.4 % (37.0-47.0); Hemoglobin 12.9 g/dL (12.0-16.0); Mean Corp Hgb Conc. 34.5 g/dL (33.0-37.0); Mean Corpuscular Volume 98.7 fL (81.0-99.0); Mean Platelet Volume 9.2 fL (7.4-10.4); Nucleated Red Blood Cells % 0 %; Platelet Count 259 10^3/uL (130-400); Red Blood Cell Count 3.79 10^6/uL (4.20-5.40); Red Cell Dist. Width 12.8 % (11.5-14.5); White Blood Cell Count 6.5 10^3/uL (4.8-10.8)
[2024-10-21 11:58] LABS: ALT (SGPT) 12 U/L (0-35); AST (SGOT) 32 U/L (14-36); Alkaline Phosphatase 60 U/L (38-126); Blood Urea Nitrogen 14 mg/dl (7-17); Calcium 9.2 mg/dl (8.4-10.2); Carbon Dioxide 30 mmol/L (22-30); Chloride 104 mmol/L (98-107); Glucose 100 mg/dl (70-99); HDL Cholesterol 54 mg/dl; LDL Cholesterol, Calculated 40 mg/dl; Potassium 4.1 mmol/L (3.5-5.1); Sodium 141 mmol/L (135-145); Total Bilirubin 0.9 mg/dl (0.2-1.3); Total Cholesterol 110 mg/dl (50-199); Total Protein 6.3 g/dl (6.3-8.2); Triglyceride 81 mg/dl (10-149); Very Low Density Lipoprotein 16 mg/dl (0-30); eGFR > 60.00
[2024-10-21 12:24] LABS: TSH Reflex To Free T4 0.48 uIU/ml (0.47-4.68)
[2024-10-21 13:00] LABS: Glycohemoglobin (HgbA1c) 5.4 % (4.0-5.6)
== END ==
LOC: REG 10:05
PROVIDERS: ATTENDING PHYSICIAN Family Medicine
DX: E89.0 Postprocedural hypothyroidism (principal); E11.51 Type 2 diabetes mellitus with diabetic peripheral angiopathy without gangrene; N18.30 Chronic kidney disease, stage 3 unspecified; E78.00 Pure hypercholesterolemia, unspecified
CPT/HCPCS: 36415; 80053; 80061; 83036; 84443; 85025

== ENCOUNTER → 2025-03-21 11:16 | Outpatient (REF) | payer MEDICARE, OTHER, SELFPAY ==
[2025-03-21 12:16] LABS: Hematocrit 36.1 % (37.0-47.0); Hemoglobin 12.3 g/dL (12.0-16.0); Mean Corp Hgb Conc. 34.1 g/dL (33.0-37.0); Mean Corpuscular Volume 97.8 fL (81.0-99.0); Nucleated Red Blood Cells % 0 %; Platelet Count 277 10^3/uL (130-400); Red Cell Dist. Width 12.9 % (11.5-14.5)
[2025-03-21 13:20] LABS: ALT (SGPT) 16 U/L (0-35); AST (SGOT) 34 U/L (14-36); Albumin 3.9 g/dl (3.5-5.0); Alkaline Phosphatase 47 U/L (38-126); Total Protein 6.4 g/dl (6.3-8.2)
== END ==
LOC: REG 11:16
PROVIDERS: ATTENDING PHYSICIAN Internal Medicine Hematology & Oncology; FAMILY PHYSICIAN Family Medicine
DX: C50.511 Malignant neoplasm of lower-outer quadrant of right female breast (principal); D70.9 Neutropenia, unspecified; R11.2 Nausea with vomiting, unspecified; R19.7 Diarrhea, unspecified
CPT/HCPCS: 36415; 80076; 85025

== ENCOUNTER → 2025-03-27 08:07 | Outpatient (REF) | payer MEDICARE, OTHER, SELFPAY ==
[2025-03-27 10:33] LABS: ALT (SGPT) 15 U/L (0-35); AST (SGOT) 36 U/L (14-36); Albumin 3.9 g/dl (3.5-5.0); Alkaline Phosphatase 49 U/L (38-126); Blood Urea Nitrogen 18 mg/dl (7-17); Calcium 9.4 mg/dl (8.4-10.2); Carbon Dioxide 30 mmol/L (22-30); Chloride 102 mmol/L (98-107); Glucose 91 mg/dl (70-99); HDL Cholesterol 59 mg/dl; LDL Cholesterol, Calculated 52 mg/dl; Potassium 3.8 mmol/L (3.5-5.1); Sodium 137 mmol/L (135-145); Total Protein 6.5 g/dl (6.3-8.2); Very Low Density Lipoprotein 13 mg/dl (0-30); eGFR 54.53
[2025-03-27 10:56] LABS: Hematocrit 36.7 % (37.0-47.0); Hemoglobin 12.8 g/dL (12.0-16.0); Mean Corp Hgb Conc. 34.9 g/dL (33.0-37.0); Mean Corpuscular Volume 99.2 fL (81.0-99.0); Nucleated Red Blood Cells % 0 %; Platelet Count 309 10^3/uL (130-400); Red Cell Dist. Width 12.6 % (11.5-14.5)
[2025-03-27 10:57] LABS: Microalb - Urine Creatinine 122.500 mg/dl
[2025-03-27 11:24] LABS: Microalbumin, Random Urine 2.9 mg/dl (0.6-1.7)
[2025-03-27 11:46] LABS: Glycohemoglobin (HgbA1c) 5.4 % (4.0-5.6)
== END ==
LOC: HWLAB 08:07
PROVIDERS: ATTENDING PHYSICIAN Family Medicine; REFERRING PHYSICIAN Internal Medicine Hematology & Oncology
DX: E89.0 Postprocedural hypothyroidism (principal); E11.51 Type 2 diabetes mellitus with diabetic peripheral angiopathy without gangrene; N18.30 Chronic kidney disease, stage 3 unspecified; E78.00 Pure hypercholesterolemia, unspecified; D64.9 Anemia, unspecified; R53.83 Other fatigue
CPT/HCPCS: 36415; 80053; 80061; 82043; 82570; 83036; 84439; 84443; 85025

== ENCOUNTER → 2025-04-04 08:59 | Outpatient (REF) | payer MEDICARE, OTHER, SELFPAY | LOC: WDC 08:59 | PROVIDERS: ATTENDING PHYSICIAN Internal Medicine Hematology & Oncology; FAMILY PHYSICIAN Family Medicine | DX: N64.4 Mastodynia (principal); Z85.3 Personal history of malignant neoplasm of breast; C50.511 Malignant neoplasm of lower-outer quadrant of right female breast | CPT/HCPCS: 76642; 77063; 77067 ==

== ENCOUNTER 2025-04-26 11:32 | Emergency (ER) | payer MEDICARE, OTHER, SELFPAY ==
[2025-04-26] VITALS (8 sets, daily range): BP systolic 137–207; BP diastolic 55–125; PULSE 58–72; BMI 29.7
[2025-04-26 12:06] LABS: Hematocrit 36.5 % (37.0-47.0); Hemoglobin 12.2 g/dL (12.0-16.0); Mean Corp Hgb Conc. 33.4 g/dL (33.0-37.0); Mean Corpuscular Volume 101.1 fL (81.0-99.0); Nucleated Red Blood Cells % 0 %; Platelet Count 255 10^3/uL (130-400); Red Cell Dist. Width 12.6 % (11.5-14.5)
[2025-04-26 12:17] LABS: AST (SGOT) 41 U/L (14-36); Albumin 4.0 g/dl (3.5-5.0); Blood Urea Nitrogen 19 mg/dl (7-17); Calcium 9.2 mg/dl (8.4-10.2); Carbon Dioxide 28 mmol/L (22-30); Chloride 106 mmol/L (98-107); Estimated Creatinine Clearance 45 ml/min; Glucose 107 mg/dl (70-99); Total Protein 6.6 g/dl (6.3-8.2); eGFR > 60.00
[2025-04-26 12:27] LABS: ALT (SGPT) 18 U/L (0-35); Alkaline Phosphatase 46 U/L (38-126); Potassium 4.1 mmol/L (3.5-5.1); Sodium 140 mmol/L (135-145)
--- NOTE | 2025-04-26 13:45 | ED.GENMED ---
History of Present Illness
<Liz Quick PA-C - Last Filed: 04/26/25 22:28>
General
Chief Complaint: Dizziness
Source: patient and family
Exam Limitations: none
Time Seen by Provider: 04/26/25 12:18
Nursing documentation reviewed up to this point in time: agreed with
History of Present Illness
History of Present Illness:
Patient is an 89-year-old female who presents to the emergency department with acute onset dizziness. Patient was at [facility] when she stood up and had acute onset dizziness and was leaning to the right. She was very unsteady and had to be held up by
bystanders. She states that the dizziness is improved now that she is laying down however she does describe a headache in the left side of her head extending down to her left neck. She also describes intermittent jerking/convulsing episodes and
'stuttering' of her speech.
Her daughter states that she does have a history of similar convulsing type episodes and stuttering speech which have been progressively worsening over the past 2 years. However, they have never seen symptoms quite as severe as today
She also does have a history of peripheral vertigo.
She denies any recent fever or infectious symptoms. No chest pain or shortness of breath. No changes in vision or unilateral weakness/numbness.
Past History
<Liz Quick PA-C - Last Filed: 04/26/25 22:28>
Past History
ED Past Medical History: Cancer, Fibromyalgia, GERD, HTN, Hypercholesterolemia, Hypothyroidism, Psychiatric, Other and Other
ED Past Surgical History: Appendectomy, Cholecystectomy, Gynecological, Orthopedic and Other
Social History
Tobacco: Former smoker
Alcohol: None
Drug: None
Personal:
Living: with family
Employment: Retired
Family History
Family History: Cancer
Review of Systems
<Liz Quick PA-C - Last Filed: 04/26/25 22:28>
Review of Systems
Allergies reviewed?: Yes
All Other Systems: ROS reviewed and negative except as documented in HPI and ROS
Phy Exam
<Liz Quick PA-C - Last Filed: 04/26/25 22:28>
Physical Exam
Physical Exam:
Vitals: Hypertensive, otherwise vital signs stable.
General: Patient is well appearing, no acute distress
Skin: Warm and dry, no rashes or lesions
Head: Normocephalic, atraumatic
Eyes: Sclera nonicteric. EOMs intact. No nystagmus
Throat: Protecting airway
Neck: Normal ROM, no cervical spine tenderness, no meningismus
Cardiac: Regular rate and rhythm, no murmurs.
Pulm: Normal respiratory effort, no wheezes, rales, rhonchi heard on exam
Abdomen: Abdomen soft and nontender.
Extremities: No evidence of cyanosis or edema. Strength and sensation grossly intact bilaterally
Neuro: AAOx3. No facial droop or asymmetry. Fluid speech. Intermittent myoclonus of upper/lower extremities with stuttered speech
Psychiatric: Normal affect.
Course
<Liz Quick PA-C - Last Filed: 04/26/25 22:28>
Orders/Labs/Results
Orders:
Orders
04/26/25 11:35
Electrocardiogram (*1) Urgent
Reason for Study: Vertigo / Dizzy
EKG- Treatment ONCE
04/26/25 11:50
Complete Blood Count/With Diff Urgent
Comprehensive Metabolic Panel Urgent
Ferritin Urgent
Comment: ADD ON
Folate Urgent
Comment: ADD ON
TSH Reflex To Free T4 Urgent
Comment: ADD ON
Vitamin B12 Urgent
Comment: ADD ON
04/26/25 12:57
CT Head & Neck Angio W/wo IV Urgent
Comment: discussed w/ attending
Reason For Exam: Vertigo, headache/neck pain, convulsions
04/26/25 14:15
Acetaminophen [Tylenol] 650 mg PO NOW STA
04/26/25 15:09
Orthostatic VS- Treatment ONCE
04/26/25 15:10
NEUROLOGY CONSULT Urgent
Consulting Provider: Yvon Fenton
Was physician already notified: Yes
04/26/25 15:36
Diphenhydramine [Benadryl] 25 mg IV NOW STA
04/26/25 15:37
Orthostatic Vital Signs As Directed
Orthostatic VS Frequency: BID
Comment: please wait 3 minutes after each position change before checking bp
04/26/25 15:54
Add On- LAB Routine
Tests Added?: folate, ferritin, TSH reflex, B12
Abnormal Lab Results
04/26/25
11:50
RBC 3.61 L 10^6/uL
(4.20-5.40)
Hct 36.5 L %
(37.0-47.0)
MCV 101.1 H fL
(81.0-99.0)
MCH 33.8 H pg
(27.0-31.0)
BUN 19 H mg/dl
(7-17)
Glucose 107 H mg/dl
(70-99)
AST 41 H U/L
(14-36)
Folate > 20.0 H ng/ml
(2.76-20)
04/26/25 11:50
04/26/25 11:50
Vital Signs
Initial and Last Documented VS:
Initial Vital Signs
Temp Pulse Resp BP Pulse Ox
98 F 57 16 207/74 98
04/26/25 11:37 04/26/25 11:37 04/26/25 11:37 04/26/25 11:37 04/26/25 11:37
Last Documented Vital Signs
Temp Pulse Resp BP Pulse Ox
98 F 62 28 158/74 95
04/26/25 11:37 04/26/25 17:00 04/26/25 17:00 04/26/25 17:00 04/26/25 15:00
<Shabnam Migel, - Last Filed: 04/26/25 15:57>
Orders/Labs/Results
Orders:
Orders
04/26/25 11:35
Electrocardiogram (*1) Urgent
Reason for Study: Vertigo / Dizzy
EKG- Treatment ONCE
04/26/25 11:50
Complete Blood Count/With Diff Urgent
Comprehensive Metabolic Panel Urgent
Ferritin Urgent
Comment: ADD ON
Folate Urgent
Comment: ADD ON
TSH Reflex To Free T4 Urgent
Comment: ADD ON
Vitamin B12 Urgent
Comment: ADD ON
04/26/25 12:57
CT Head & Neck Angio W/wo IV Urgent
Comment: discussed w/ attending
Reason For Exam: Vertigo, headache/neck pain, convulsions
04/26/25 14:15
Acetaminophen [Tylenol] 650 mg PO NOW STA
04/26/25 15:09
Orthostatic VS- Treatment ONCE
04/26/25 15:10
NEUROLOGY CONSULT Urgent
Consulting Provider: Yvon Fenton
Was physician already notified: Yes
04/26/25 15:36
Diphenhydramine [Benadryl] 25 mg IV NOW STA
04/26/25 15:37
Orthostatic Vital Signs As Directed
Orthostatic VS Frequency: BID
Comment: please wait 3 minutes after each position change before checking bp
04/26/25 15:54
Add On- LAB Routine
Tests Added?: folate, ferritin, TSH reflex, B12
Abnormal Lab Results
04/26/25
11:50
RBC 3.61 L 10^6/uL
(4.20-5.40)
Hct 36.5 L %
(37.0-47.0)
MCV 101.1 H fL
(81.0-99.0)
MCH 33.8 H pg
(27.0-31.0)
BUN 19 H mg/dl
(7-17)
Glucose 107 H mg/dl
(70-99)
AST 41 H U/L
(14-36)
Folate > 20.0 H ng/ml
(2.76-20)
04/26/25 11:50
04/26/25 11:50
Vital Signs
Initial and Last Documented VS:
Initial Vital Signs
Temp Pulse Resp BP Pulse Ox
98 F 57 16 207/74 98
04/26/25 11:37 04/26/25 11:37 04/26/25 11:37 04/26/25 11:37 04/26/25 11:37
Last Documented Vital Signs
Temp Pulse Resp BP Pulse Ox
98 F 62 28 158/74 95
04/26/25 11:37 04/26/25 17:00 04/26/25 17:00 04/26/25 17:00 04/26/25 15:00
<Liz Quick PA-C - Last Filed: 04/26/25 22:28>
MDM/Problems Addressed
Differential Diagnosis Includes:
Not limited to: Peripheral vertigo, orthostatic hypotension, acute dehydration, anemia, CVA, functional neurologic disorder, etc.
MDM/Problems Addressed:
89-year-old female presents with acute onset of dizziness, unsteadiness, left-sided headache, and myoclonus with speech stuttering. Symptoms began earlier today after standing up from a table. On arrival to the ED, dizziness had largely improved.
The patient was hypertensive but otherwise hemodynamically stable. On exam, she is alert and oriented, anxious, and mildly tremulous with intermittent myoclonic jerking followed by brief episodes of speech stuttering. No nystagmus is present.
Neurologic exam otherwise non-focal.
The patient reportedly has a history of similar involuntary movements in the past, though not previously this pronounced. Laboratory studies were unremarkable. Given the acute onset of dizziness and headache, CT head and CT angiography of the head
and neck were performed and demonstrated no acute intracranial or vascular abnormalities. Persistent intermittent jerking appeared to worsen with anxiety and emotional stress during the exam.
Neurology was consulted and evaluated the patient at bedside. Based on their assessment and the absence of acute findings on imaging or exam, suspicion for an acute central nervous system process is very low. The presentation is most consistent with
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
The patient was able to ambulate safely in the ED. Orthostatic vitals were negative. Dizziness has improved, and there is no evidence of an emergent process requiring inpatient management. She will be discharged home in stable condition with
outpatient neurology follow-up for further evaluation of her chronic symptoms. Advised to follow up with her landing support specialist regarding blood pressure management and possible medication adjustment. Return precautions were discussed thoroughly. The
patient and her daughters are comfortable with the plan and will monitor her closely at home.
Chronic conditions affecting care:
Hypertension, history of peripheral vertigo
Acute Exacerbation and/or Progression of Chronic Illness:
Acutely hypertensive
<Liz Quick PA-C - Last Filed: 04/26/25 22:28>
*Radiology
Radiology exam reviewed: radiology read reviewed
*Pulse Oximetry
SaO2: 98
Oxygen Mode of Delivery: Room air
Patient hypoxic: no
*EKG
Interpreted by ED Provider?: Yes
EKG Intrepretation Date: 04/26/25
Interpretation: abnormal
Comparison EKG: changes noted
Heart Rate: 55
Rate: bradycardiac
Rhythm: sinus
[place]: normal axis
Interval: normal QT interval
QRS Pattern: right bundle branch block
Ischemia: non-specific ST changes
*Detective Captain Interpretation
Rate: normal
Interpretation: normal
Heart Rate: 62
Rhythm: sinus
*Critical Care Note
Total Time (30-74mins, 75-104mins- exclusive of procedures): Not Applicable
<Liz Quick PA-C - Last Filed: 04/26/25 22:28>
Patient Management
Discussion with other providers: Head School Custodian (Case discussed with neurology)
ED Attending Note
<Liz Quick PA-C - Last Filed: 04/26/25 22:28>
-
Portions of this chart may have been created with voice recognition software.� Occasional wrong word or��sound alike� substitutions may have occurred due to the inherent limitations of voice recognition software.
<Shabnam Lainez DO - Last Filed: 04/26/25 15:57>
ED Attending Note
Patient seen and examined by attending physician: Yes
I performed the substantive portion of visit, reviewed & personally made and approve the management plan that is documented in note by myself or WILLIE.: Yes
I performed a history and physical exam of patient and discussed management with resident, I reviewed resident's note and agree with documented findings and plan of care.: Yes
ED Attending Note:
89-year-old female with history of vertigo, hyperlipidemia, neuropathy presenting to the emergency department presenting for dizziness and lightheadedness. Patient was at [facility] prior to arrival, became acutely dizzy and was leaning to the right.
Father her symptoms were worse than typical. She was also noted to have stuttering speech. Daughters arrived at bedside, reports that the stuttering has been ongoing for several months to a year. They also note the patient has been having
convulsive like behaviors which is worsened by stress. She initially started having tremors back in 2010, has been seen by neurology in the past. She denies focal weakness or sensory deficits. She denies visual changes. Vital signs on arrival
significant for high blood pressure, however improved without intervention.
On exam, patient is resting comfortably, no acute distress. Notes that her dizziness has improved since arrival. Minimal nystagmus when looking to the left. Intact strength and sensation bilaterally, awake, alert, oriented. No significant focal
neurologic deficits. While in examination room, patient did have a full body convulsive/jerking episode. Patient had CT imaging prior to my assessment, unremarkable with lower suspicion for stroke. Suspect component of vertigo and stress-induced
neurologic movements. Given patient's symptoms, neurologic consultation placed.
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 Recommending orthostatic vital signs and disposition home with outpatient follow-up. Feel this is reasonable. Patient ambulated
steadily.
Discharge Plan
Departure
Patient Disposition: Home (Routine Discharge)
Date of Disposition: 04/26/25
Time of Disposition: 16:53
Patient with high blood pressure during this ER visit?: Yes
Condition: Good
Discharge Problem:
Dizziness, Myoclonus
Instructions: Vertigo (a Type of Dizziness) (DC), BLOOD PRESSURE
Prescriptions:
No Action
famotidine 40 MG tablet
40 mg PO HS
aspirin 81 MG tablet,delayed release (DR/EC)
81 mg PO DAILY
lorazepam 0.5 MG tablet
0.5 mg PO DAILYPRN PRN (Reason: anxiety)
escitalopram oxalate 10 MG tablet
5 mg PO DAILY
pantoprazole 40 MG tablet,delayed release (DR/EC)
40 mg PO DAILY
hydrochlorothiazide 12.5 MG capsule
12.5 mg PO DAILY
metoprolol succinate 25 MG tablet extended release 24 hr
25 mg PO BID
gabapentin 300 MG capsule
900 mg PO HS
gabapentin 300 MG capsule
300 mg PO DAILY
ezetimibe 10 MG tablet
10 mg PO HS
cholecalciferol (vitamin D3) [Vitamin D3] 2,000 UNIT capsule
2,000 unit PO DAILY
Botox 100 unit Recon Soln
0 unit IM MONTHLY
Theragen Tablet
1 tab PO DAILY
Ocuvite Tablet
1 tab PO DAILY
Praluent Pen 75 mg/mL Pen Injector
75 mg SC Q2W
ibuprofen 400 mg tablet
400 mg PO Q8H PRN (Reason: Pain) Qty: 20 0RF
Referrals:
Arturo Padilla Jr., DO [Family Provider, Internal Medicine]
Yvon Fenton MD [Active, Neurology] - Next open appointment
Activity Restrictions/Additional Instructions:
RETURN TO THE EMERGENCY DEPARTMENT WITH ANY SEVERE HEADACHE, NECK PAIN, DIZZINESS, UNSTEADINESS, CHEST PAIN OR SHORTNESS OF BREATH, CHANGES IN MENTAL STATUS, WORSENING IN CURRENT SYMPTOMS, OR ANY OTHER CONCERNS
- As discussed your lab work and imaging study showed no acute findings in the emergency department.
- Please continue to take all medications as prescribed. Please stay well-hydrated. Move slowly from sitting to standing position
- Follow-up with primary care and neurology for further evaluation/management and to ensure that your symptoms improve. You may require further imaging and workup
Monitor your symptoms closely and return to the emergency department with any acute worsening/new symptoms or any other concerns
Interventions
Interventions:
*Risk Screen - Suicide Last Done: 04/26/25 11:43
*General Assessment Last Done: 04/26/25 11:43
*Neglect/Abuse Screening Last Done: 04/26/25 11:43
*ED- Fall Risk Assessment Last Done: 04/26/25 11:43
*ED COVID-19 Vaccine History Last Done: 04/26/25 11:43
*ED Influenza Vaccine History Last Done: 04/26/25 11:43
*Nursing Disposition Last Done: 04/26/25 17:08
ED- Neurological Assessment Last Done: 04/26/25 11:41
ED- Cardiac Assessment Last Done: 04/26/25 17:08
ED Swallowing Screen Last Done: 04/26/25 14:00
Discharge Date and Time
Discharge Date/Time: 04/26/25 17:24
Print Language: IRANIAN
[2025-04-26] MEDS: TYLENOL 650 MG PO (14:23)
--- NOTE | 2025-04-26 15:19 | CON.NEURO4 ---
Addendum entered and electronically signed by Yvon Fenton MD 04/26/25 16:07:
Studies reviewed.
I have personally examined the patient. I reviewed and agree with the [employer]PECT[employer]'s Note.
My addenda:
Awake, alert, interactive. No acute distress.
Follows 2-step requests w/o difficulty. No tremor. Single central body high amplitude near pelvic thrust movement performed 1 time. Patient had intermittent stuttering of speech which was distractible and momentary.
Extra-ocular movements grossly intact.
Facial movements full and symmetric. Hearing intact to normal conversational volume.
Normal UE movements bilaterally.
Neck: full ROM.
Chest: no dyspnea
Heart: no JVD
Ext: (-) Clubbing, (-) Cyanosis, (-) Edema
IMPRESSIONS/RECOMMENDATIONS:
Abrupt onset of myoclonus with dizziness and intermittent headache. Patient is also demonstrating intermittent speech changes.
Patient was previously evaluated for generalized tremor on this service approximately 17 months ago.
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
Provide lorazepam to reduce generalized anxiety
Cognitive behavioral therapy to reduce episodes as outpatient
Continue patient's usual aspirin 81 mg daily
Check orthostatic blood pressures
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
Will follow as needed
Original Note:
Consultation - Neurology 4
-
CONSULTING PHYSICIAN: Yvon Fenton MD
REFERRING PHYSICIAN: ER/Liz
DICTATED BY: TUTU Henry
DATE/TIME OF REQUEST: 04/26/25
DATE/TIME OF CONSULTATION: 04/26/25
Reason for Consultation: Dizziness, abnormal body movements
History of Present Illness:
This is an 89-year-old female who has presented to the hospital with report of dizziness and increased chronic abnormal body movements. Patient has been previously followed by our Neurology service for history of tremors, cervical dystonia,
drooling, dyskinesias, peripheral polyneuropathy, LLE numbness, and chronic right caudate nucleus, left frontal lobe, and left cerebellar lacunar infarcts.
From my previous evaluation on 10/11/23:
''This is an 88-year-old female who has presented to the hospital with report of difficulty speaking, confusion, and headache. Patient was formerly followed by our Neurology service Dr. Mao as an outpatient for tremors, cervical dystonia,
drooling, dyskinesia, peripheral polyneuropathy, LLE numbness, and chronic right caudate nucleus, left frontal lobe, and left cerebellar lacunar infarcts.
From previous evaluation by Dr. Mao on 01/08/22:
'Ms. Escobar returns to the office today for a follow-up visit for pain in the back of her neck and lower back. She reports continued and daily pain in her lower back and the back of the neck. However, some days the pain is mild and does not bother
her too much, and other days, it is more intense. She has approximately 2 days a week of more intense pain. She reports compliance with meloxicam, Gabapentin and lidocaine patch. She uses lidocaine patch only on her lower back at this time.
Sometimes, she also takes an additional Tylenol when her pain is more intense. She reports having had a fall in August 2018. She denies any new neurologic complaints today.�������
Patient daughter also noticed patient started to have repetitive oral Facial movement Several years ago. Patient is not able to suppress the movement. She does not feel urge or released before or after the movement. Patient denies history of
exposure to neuroleptics.�������
Patient also had a carotid ultrasound June 2020 and it showed no significant stenosis of internal carotid artery bilaterally.�������
She is taking gabapentin 300mg AM/900 mg PM for neuropathic pain.�������
INTERVAL HX:�������Since last visit, she reported Botox injection is very helpful and improved neck spasm and neck tremor. Kick in about one week and wearing off about two weeks ago. No SE. Drooling significantly improved after botox A injection
however wearing off started about 2-3 weeks ago. No SE from Botox injection.'
In 2016, she presented to with report of right facial drooping and tongue numbness. 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 MRI brain in 2017
demonstrated a small left frontal lobe ischemic infarct. Additionally, in 2018 due to frequent headache she underwent temporal artery biopsy which was negative.
Today (10/11/23), patient's daughter reports that the patient was at her baseline. She went to lunch with another family member and up retuning around 1330, her speech suddenly became stuttered, dysarthric. A stroke alert was activated due to concern
of aphasia. CT head was obtained on arrival in the ER and is negative for any acute abnormalities. NIHSS is a 2 for LLE drift and mild dysarthria. She is not a candidate for TNK/IAT due to NIHSS <6, unclear diagnosis. Patient currently reports a
headache which she has had intermittently for the past week. She has chronic vertigo. She denies any vision changes, swallowing difficulty, new numbness, weakness, chest pain, palpitations, photo/phonophobia, and shortness of breath. She reports
chronic LLE numbness/discomfort with palpation. He daughter reports that she has had similar speech changes in the past associated with severe anxiety. She is taking aspirin 81mg daily and denies missing any doses.''
Patient and her daughters at bedside report that today she was playing bingo when she stood up and suddenly became dizzy and was leaning to the right side. She also notes a left-sided headache extending down her left neck that she rates a 5/10. She
has a history of whole body tremors since her daughters were in high school, but after this event her jerking/tremors became severe and her speech also became stammered as it has in the past. Currently lying down she feels okay. Upon sitting up and
standing up at the side of the bed she reports feeling dizzy which she describes as a falling to the left sensation, and has a jumping convulsion-like movement. She denies any known history of orthostatic hypotension. She has been taking gabapentin
for neuropathy since at least 2012.
Past Medical History: R caudate nucleus, left frontal lobe, and left cerebellar lacunar infarcts, HTN, HLD, neuropathy, CKD, depression, anxiety, Dixon's esophagus, GERD, breast cancer, hypothyroidism, carotid stenosis, thoracic HNP
Surgical History: L CEA, breast biopsy, b/l breast lumpectomy, b/l cataract removal, hysterectomy, appendectomy, trigger finger release, soft tissue roof of mouth removal, B/L TKR, BL L3-Si IAFJI, cervical Botox injections by
[facility]
Family History: Sister- cerebral aneurysm
Social History: Former smoker.
Allergies: See below. Statin intolerant.
Allergies: See below.
Home Medications: See below.
Review of Symptoms:
Patient denies any fever, chest pain, shortness of breath, GI or symptoms.
�Per the HPI.�All systems are reviewed negative except above.
Physical Exam:
The patient is afebrile, abdomen is nondistended, breathing is unlabored, skin is warm and dry, no edema.
Neurologic Examination:
The patient is awake, alert and oriented x 3. She is able to follow commands and answer questions appropriately. Speech is intermittently stammered. On cranial nerve assessment, pupils are 3 mm bilateral, round and reactive to light and
accommodation. Visual camarena are full. Extraocular movements are intact. No nystagmus. Facial sensations are intact and bilaterally symmetrical, there is no facial asymmetry. Hearing is intact bilaterally to normal conversation volume. Tongue palate
and uvula are midline. Sternocleidomastoid strengths are full bilaterally. Motor strengths are 5/5 bilateral upper and lower extremities on medical research [place] scale. There is slight drift chronically in the LLE. There is a low amplitude whole
body tremor noted in addition to an intermittent high amplitude whole body tremor that looks like a jumping movement. Deep tendon reflexes are 2+ bilateral upper and lower extremities and Babinski is absent bilaterally. There was no extinction
noted on double simultaneous stimulation. Coordination is intact by finger to nose bilaterally.
Lab Results: See below.
Neuro Imaging:
1. CTA head/neck 04/26/25: No evidence of large vessel occlusion, or arterial dissection. No acute intracranial abnormality appreciated on noncontrast head CT. Atrophy and small vessel ischemic change, stable compared to prior study.
Differentials for the patient's presentation include:
1. Concern for orthostasis producing postural dizziness.
2. Abnormal body movements and speech stammering in the setting of headache and dizziness, likely due to functional neurological disorder.
Patient has the following risk factors for their symptoms: Hx of similar events
Recommendations:
-Check orthostatic vital signs, if positive, recommend an abdominal binder.
-Follow-up as an outpatient with neuropsychology for functional neurological disorder.
-Checking blood work for metabolic disturbance.
-Continue aspirin 81mg daily.
Discussed patient care with: Dr. Fenton, Dr. Lainez
Vital Signs and Labs
-
Vital Signs and Labs:
Vital Signs
Temp Pulse Resp BP Pulse Ox
98 F 58 19 171/60 95
04/26/25 11:37 04/26/25 15:00 04/26/25 15:00 04/26/25 15:00 04/26/25 15:00
Lab Results
04/26/25 11:50
04/26/25 11:50
Sodium 140 mmol/L (135-145) 04/26/25 11:50
Potassium 4.1 mmol/L (3.5-5.1) 04/26/25 11:50
BUN 19 mg/dl (7-17) H 04/26/25 11:50
Glucose 107 mg/dl (70-99) H 04/26/25 11:50
Calcium 9.2 mg/dl (8.4-10.2) 04/26/25 11:50
Medications
-
Home Medications
�Medication �Instructions �Recorded
aspirin 81 mg tablet,delayed 81 mg PO DAILY 05/10/14
release
escitalopram oxalate 10 mg tablet 5 mg PO DAILY 05/10/14
famotidine 40 mg tablet 40 mg PO HS 05/10/14
lorazepam 0.5 mg tablet 0.5 mg PO DAILYPRN PRN anxiety 05/10/14
pantoprazole 40 mg tablet,delayed 40 mg PO DAILY 02/17/17
release
hydrochlorothiazide 12.5 mg capsule 12.5 mg PO DAILY 02/28/18
metoprolol succinate 25 mg 25 mg PO BID 02/28/18
tablet,extended release 24 hr
cholecalciferol (vitamin D3) 50 2,000 unit PO DAILY 01/15/19
mcg (2,000 unit) capsule (Vitamin
D3)
ezetimibe 10 mg tablet 10 mg PO HS 01/15/19
gabapentin 300 mg capsule 300 mg PO DAILY 01/15/19
gabapentin 300 mg capsule 900 mg PO HS 01/15/19
alirocumab 75 mg/mL subcutaneous 75 mg SC Q2W 10/11/23
pen injector (Praluent Pen)
onabotulinumtoxinA 100 unit 0 unit IM MONTHLY BACK OF NECK 10/11/23
solution for injection (Botox)
therapeutic multivitamin 1 tab PO DAILY 10/11/23
vitamin A-vitamin C-vit E-min 1 tab PO DAILY 10/11/23
tablet
ibuprofen 400 mg tablet 400 mg PO Q8H PRN Pain #20 tabs 12/27/23
[2025-04-26] MEDS: BENADRYL 25 MG IV (15:52)
[2025-04-26 17:12] LABS: Ferritin 61.4 ng/ml (11.1-264.0)
[2025-04-26 17:44] LABS: Folate > 20.0 ng/ml (2.76-20); Vitamin B12 764 pg/ml (239-931)
== END 2025-04-26 17:24 | disposition home or self-care (01) ==
LOC: EMR 11:32
PROVIDERS: CONSULT PHYSICIAN Psychiatry & Neurology Neurology; EMERGENCY PHYSICIAN Student in an Organized Health Care Education/Training Program; FAMILY PHYSICIAN Family Medicine
DX: R42 Dizziness and giddiness (principal); G25.3 Myoclonus; R00.1 Bradycardia, unspecified; I12.9 Hypertensive chronic kidney disease with stage 1 through stage 4 chronic kidney disease, or unspecified chronic kidney disease; N18.9 Chronic kidney disease, unspecified; E78.00 Pure hypercholesterolemia, unspecified; I65.22 Occlusion and stenosis of left carotid artery; I77.71 Dissection of carotid artery; E03.9 Hypothyroidism, unspecified; F32.A Depression, unspecified; F41.9 Anxiety disorder, unspecified; K22.70 Barrett's esophagus without dysplasia; K21.9 Gastro-esophageal reflux disease without esophagitis; G62.9 Polyneuropathy, unspecified; M79.7 Fibromyalgia; M51.24 Other intervertebral disc displacement, thoracic region; G24.3 Spasmodic torticollis; Z79.82 Long term (current) use of aspirin; Z87.891 Personal history of nicotine dependence; Z85.3 Personal history of malignant neoplasm of breast; Z88.8 Allergy status to other drugs, medicaments and biological substances; Z96.653 Presence of artificial knee joint, bilateral
CPT/HCPCS: 99284; 96374; 70496; 70498; 80053; 82607; 82728; 82746; 84443; 85025; 93005; Q9967